=== PATIENT | female | born 1990 | race Caucasian/White ===

== ENCOUNTER 2023-08-29 18:38 | Emergency (ER) | payer OTHER ==
[2023-08-29 18:48] VITALS: BP 111/65; PULSE 79; RESP 18; TEMP 97.8; BMI 29.7
[2023-08-29] MEDS ORDERED: METOCLOPRAMIDE HCL INJECTION 10 MG/2 ML VIAL ONE (20:35)
[2023-08-29 20:49] LABS: BASO % 0.4 % (0-2.0); EOS % 1.1 % (0-4.5); HEMATOCRIT 34.7 % (32.4-45.2); HEMOGLOBIN 11.6 GM/dL (10.7-15.3); LYMPH % 43.6 % (8-40); MCH 29.5 pg (25.7-33.7); MCHC 33.5 g/dl (32.0-36.0); MEAN CELL VOLUME 88.1 fl (80-96); MEAN PLT VOLUME 8.5 fl (7.5-11.1); MONO % 6.3 % (3.8-10.2); NEUT % 48.6 % (42.8-82.8); PLATELET COUNT 255 10^3/uL (134-434); RBC 3.94 M/mm3 (3.60-5.2); RDW 12.3 % (11.6-15.6); WHITE BLOOD COUNT 7.5 K/mm3 (4.0-10.0)
[2023-08-29] MEDS: SODIUM CHLORIDE 0.9% 500 ML INFUS.BAG IV ONE (21:18)
[2023-08-29] MEDS: METOCLOPRAMIDE HCL INJECTION 10 MG/2 ML VIAL IVPUSH ONE (21:18)
[2023-08-29 21:23] LABS: POTASSIUM 4.1 mmol/L (3.5-5.1)
[2023-08-29 21:25] LABS: CALCIUM 9.1 mg/dL (8.5-10.1)
[2023-08-29 21:26] LABS: ALBUMIN 3.7 g/dl (3.4-5.0)
[2023-08-29 21:29] LABS: CREATININE 0.8 mg/dL (0.55-1.3)
[2023-08-29 21:30] LABS: BILIRUBIN,TOTAL 0.2 mg/dL (0.2-1); TOT PROT 7.6 g/dl (6.4-8.2)
[2023-08-29 21:39] LABS: EPI CELLS 2 /uL (0-25.1); HYALINE CASTS 0 /uL (0-3.1); URINE APPEARANCE CLEAR; URINE BACTERIA 47 /uL (0-1359); URINE BILIRUBIN NEGATIVE (NEGATIVE); URINE COLOR YELLOW; URINE GLUCOSE (UA) NEGATIVE (NEGATIVE); URINE KETONE NEGATIVE (NEGATIVE); URINE LEUK ESTERASE NEGATIVE (NEGATIVE); URINE NITRITE NEGATIVE (NEGATIVE); URINE PROTEIN NEGATIVE (NEGATIVE); URINE RBC 2 /uL (0-23.9); URINE UROBILINOGEN 0.2 mg/dL (0.2-1.0); URINE WBC 4 /uL (0-25.8)
== END 2023-08-29 22:28 | disposition home or self-care (01) ==
LOC: JER 18:38
PROC: 3E033GC Introduction of Other Therapeutic Substance into Peripheral Vein, Percutaneous Approach (ICD-10-PCS; principal; 2023-08-29)
DX: R51.9 Headache, unspecified (principal); H53.8 Other visual disturbances
CPT/HCPCS: 36415; 70450-TC; 80053; 81003; 85025; 99284-25